=== PATIENT | female | born 1955 | race Caucasian/White ===

== ENCOUNTER 2020-10-10 07:27 | Day surgery (SDC) | payer SELFPAY ==
[2020-10-04 15:34] VITALS: BMI 25.6
[2020-10-10] MEDS ORDERED: ONDANSETRON 4 MG/2 ML VIAL IVPUSH PRN (09:31)
[2020-10-10] MEDS ORDERED: oxyCODONE HCL 5 MG TABLET PO PRN (09:31)
[2020-10-10] MEDS ORDERED: ERYTHROMYCIN 0.5% OPHTHALMIC OINTMENT 3.5 GM TUBE ONE (09:37)
[2020-10-10] MEDS ORDERED: TETRACAINE 0.5% OPHTH SOLN 2 ML BOTTLE ONE (09:37)
[2020-10-10] MEDS ORDERED: LIDOCAINE 1%/EPI 1:100000 (20 ML MULTI DOSE VIAL) ONE (09:38)
[2020-10-10] MEDS ORDERED: POVIDONE-IODINE 5% OPHTHALMIC PREP 30 ML SOLUTION ONE (09:38)
[2020-10-10] MEDS ORDERED: LACTATED RINGERS SOLUTION 1,000 ML IV SCH (09:45)
[2020-10-10] MEDS ORDERED: PROPOFOL 20 ML ONE ×3 (09:49→10:53)
[2020-10-10] MEDS ORDERED: MIDAZOLAM HCL 2 MG/2 ML SINGLE DOSE VIAL ONE ×3 (09:50→11:22)
[2020-10-10] MEDS ORDERED: DEXAMETHASONE SOD PHOSPHATE 4 MG/1 ML VIAL ONE (10:01)
[2020-10-10] MEDS ORDERED: ceFAZolin SODIUM 1 GM VIAL ONE (10:14)
[2020-10-10] MEDS ORDERED: GLYCOPYRROLATE 0.2 MG/1 ML VIAL ONE (10:31)
[2020-10-10] MEDS ORDERED: KETAMINE HCL 200 MG/20 ML VIAL ONE (11:24)
[2020-10-10 12:43] VITALS: TEMP 98.2
[2020-10-10 14:24] VITALS: BP 126/74; PULSE 82
== END 2020-10-10 13:30 | disposition home or self-care (01) ==
LOC: FASU 07:27
PROVIDERS: ATTEND Ophthalmology
PROC: 080N0ZZ Alteration of Right Upper Eyelid, Open Approach (ICD-10-PCS; 2020-10-10)
PROC: 080P0ZZ Alteration of Left Upper Eyelid, Open Approach (ICD-10-PCS; principal; 2020-10-10 10:31)
DX: Z41.1 Encounter for cosmetic surgery (principal); H02.834 Dermatochalasis of left upper eyelid; H02.831 Dermatochalasis of right upper eyelid
CPT/HCPCS: 94760